=== PATIENT | female | born 1945 | race Caucasian/White ===

== ENCOUNTER → 2016-06-18 | Outpatient (CLI) | payer MEDICARE ==
--- NOTE | 2016-06-18 16:16 | REPMRS ---
Patient History The patient states she has not had a clinical breast exam in over a year. Patient is postmenopausal. Family history of prostate cancer in father at age 50 or over. Took unspecified hormones for 10 years. Digital Mammo Screening Bilat: June 18, 2016 - Exam #: [id number] Bilateral CC and MLO view(s) were taken. Technologist: Rebecca Valentine, Technologist Prior study comparison: March 04, 2015, digital bilateral screening mammo, performed at [facility]. June 06, 2013, digital bilateral screening mammo, performed at [facility]. 2012, digital bilateral screening mammo, performed at [facility]. FINDINGS: The breast tissue is heterogeneously dense. This may lower the sensitivity of mammography. There is a moderate amount of heterogeneously dense fibroglandular tissue which is fairly symmetric. There is no interval development of dominant mass, architectural distortion, or clustered microcalcification typical of malignancy. There has been no change in the appearance of the mammogram from the prior studies. ASSESSMENT: BI-RADS/ACR category 1 mammogram. Negative. Recommendation Routine screening mammogram of both breasts in 1 year (for women over age 40). This mammogram was interpreted with the aid of an FDA-approved computer-aided dectection system. Electronically Signed By: Edward Leyva MD 06/18/16 [id number]
== END ==
LOC: M RAD 15:28
PROVIDERS: ATTEND Family Medicine
DX: Z12.31 Encounter for screening mammogram for malignant neoplasm of breast (principal); R92.8 Other abnormal and inconclusive findings on diagnostic imaging of breast; Z79.890 Hormone replacement therapy

== ENCOUNTER → 2016-07-29 | Outpatient (REF) | payer MEDICARE ==
[2016-07-29 12:50] LABS: MEAN CORPUSCULAR HEMOGLOBIN 31.6 pg (27.0-33.0); MEAN CORPUSCULAR HGB CONC 33.7 g/dl (32.0-36.5); MEAN CORPUSCULAR VOLUME 93.9 fl (80.0-96.0); WHITE BLOOD COUNT 6.5 K/mm3 (4.0-10.0)
[2016-07-29 13:17] LABS: ALBUMIN/GLOBULIN RATIO 1.38 (1.00-1.93); ALKALINE PHOSPHATASE 115 U/L (45-117); ALT/SGPT 21 U/L (12-78); ANION GAP 8 MEQ/L (8-16); AST/SGOT 19 U/L (15-37); BILIRUBIN,TOTAL 0.2 MG/DL (0.2-1.0); BLOOD UREA NITROGEN 26 MG/DL (7-18); CALCIUM LEVEL 9.8 MG/DL (8.8-10.2); CARBON DIOXIDE LEVEL 31 MEQ/L (21-32); CHLORIDE LEVEL 102 MEQ/L (98-107); CHOLESTEROL LEVEL 260 MG/DL (<200); CREATININE FOR GFR 0.91 MG/DL (0.55-1.02); GLOMERULAR FILTRATION RATE > 60.0 (>39); GLUCOSE, FASTING 80 MG/DL (83-110); PHENOBARBITAL LEVEL 25.5 UG/ML (15.0-40.0); SODIUM LEVEL 141 MEQ/L (136-145); TOTAL PROTEIN 6.9 GM/DL (6.4-8.2); TRIGLYCERIDES LEVEL 87 MG/DL (<150)
== END ==
LOC: M LABDRAW1 11:52 → M SFHCLERA 11:52
PROVIDERS: ATTEND Family Medicine
DX: G40.909 Epilepsy, unspecified, not intractable, without status epilepticus (principal); N18.3 Chronic kidney disease, stage 3 (moderate); E03.9 Hypothyroidism, unspecified; I10 Essential (primary) hypertension; E55.9 Vitamin D deficiency, unspecified

== ENCOUNTER → 2016-11-15 | Outpatient (REF) | payer MEDICARE ==
[2016-11-15 13:08] LABS: MEAN CORPUSCULAR HEMOGLOBIN 31.7 pg (27.0-33.0); MEAN CORPUSCULAR HGB CONC 33.4 g/dl (32.0-36.5); MEAN CORPUSCULAR VOLUME 95.2 fl (80.0-96.0); RED CELL DISTRIBUTION WIDTH 12.6 % (11.5-14.5); WHITE BLOOD COUNT 5.8 K/mm3 (4.0-10.0)
[2016-11-15 14:11] LABS: ALBUMIN 3.7 GM/DL (3.2-5.2); ALBUMIN/GLOBULIN RATIO 1.09 (1.00-1.93); ALKALINE PHOSPHATASE 119 U/L (45-117); ALT/SGPT 24 U/L (12-78); ANION GAP 5 MEQ/L (8-16); AST/SGOT 17 U/L (15-37); BILIRUBIN,TOTAL 0.2 MG/DL (0.2-1.0); BLOOD UREA NITROGEN 30 MG/DL (7-18); CALCIUM LEVEL 9.8 MG/DL (8.8-10.2); CARBON DIOXIDE LEVEL 32 MEQ/L (21-32); CHLORIDE LEVEL 103 MEQ/L (98-107); CHOLESTEROL LEVEL 237 MG/DL (<200); CREATININE FOR GFR 0.89 MG/DL (0.55-1.02); GLOMERULAR FILTRATION RATE > 60.0 (>39); GLUCOSE, FASTING 84 MG/DL (83-110); POTASSIUM SERUM 4.1 MEQ/L (3.5-5.1); SODIUM LEVEL 140 MEQ/L (136-145); T UPTAKE 32 % (30-39); THYROXINE (T4) 10.7 UG/DL (4.5-12.0); TOTAL PROTEIN 7.1 GM/DL (6.4-8.2); TRIGLYCERIDES LEVEL 89 MG/DL (<150)
[2016-11-15 18:38] LABS: PHENOBARBITAL LEVEL 24.1 UG/ML (15.0-40.0)
== END ==
LOC: M LABDRAW1 12:34
PROVIDERS: ATTEND Family Medicine
DX: I10 Essential (primary) hypertension (principal); N18.3 Chronic kidney disease, stage 3 (moderate); G40.909 Epilepsy, unspecified, not intractable, without status epilepticus; E03.9 Hypothyroidism, unspecified; E55.9 Vitamin D deficiency, unspecified

== ENCOUNTER → 2016-11-19 | Outpatient (CLI) | payer MEDICARE ==
--- NOTE | 2016-11-19 09:32 | REP ---
Left forearm two views: There is no fracture or dislocation. There are no calcifications or foreign bodies. There is diffuse demineralization. Signed by Sandeep Kingsley MD 11/19/2016 09:23 A
--- NOTE | 2016-11-19 09:34 | REP ---
Clinical: Pain with recent Trauma. Technique: AP, lateral, bilateral oblique views left wrist. Findings: The carpal bones, surrounding osseous structures, and joint spaces demonstrate mild age-related changes. AP view demonstrates soft tissue swelling over the medial aspect adjacent to the distal ulna and very subtle nondisplaced ulnar styloid fracture cannot be excluded. No further acute fracture or dislocation is identified. Impression: Age-related changes. Cannot exclude nondisplaced ulnar styloid fracture and overlying soft tissue swelling. Signed by Ignacio Rodriguez MD 11/19/2016 09:26 A
== END ==
LOC: M LRY 08:33
PROVIDERS: ATTEND Family Medicine
DX: M85.832 Other specified disorders of bone density and structure, left forearm (principal)
CPT/HCPCS: 73090; 73110; G0463

== ENCOUNTER → 2017-02-28 | Outpatient (CLI) | payer MEDICARE ==
--- NOTE | 2017-03-01 09:33 | DEXA ---
AP SPINE L1 - L4 0.903 -2.4 -0.6 LT FEMUR TOTAL 0.723 -2.3 -0.7 RT FEMUR TOTAL 0.718 -2.3 -0.7 TOTAL BODY TOTAL OTHER DUAL FEMUR FRAX* ASSESSMENT Risk factors: 10 year probability of fracture Major osteoporotic fracture % Hip fracture % COMMENTS: There is low bone density of the spine. There is low bone density of the left hip. There is osteoporosis of the right hip. The density of the spine has increased 9.9% since the initial exam on 2012. The spine density has increased 7.6% since the most recent exam on 03/04/2015. The density of the left hip has increased 2.3% since the initial exam on 2012. The density of the left hip has increased 2.3% since the most recent exam on . The density of the right hip has increased 2.7% since the initial exam on 2012. The density of the right hip has increased 0.6% since the most recent exam on . FOLLOW-UP: Recommendation for the next bone density exam: 2 years. KEN
== END ==
LOC: M WHC 07:47
PROVIDERS: ATTEND Family Medicine
DX: M81.0 Age-related osteoporosis without current pathological fracture (principal)

== ENCOUNTER → 2017-04-12 | Outpatient (REF) | payer MEDICARE ==
[2017-04-12 19:27] LABS: MEAN CORPUSCULAR HEMOGLOBIN 31.5 pg (27.0-33.0); MEAN CORPUSCULAR HGB CONC 32.9 g/dl (32.0-36.5); MEAN CORPUSCULAR VOLUME 95.9 fl (80.0-96.0); PLATELET COUNT, AUTOMATED 223 10^3/uL (150-450); RED CELL DISTRIBUTION WIDTH 13.7 % (11.5-14.5); WHITE BLOOD COUNT 6.4 10^3/uL (4.0-10.0)
[2017-04-12 20:59] LABS: ALBUMIN 3.8 GM/DL (3.2-5.2); ALBUMIN/GLOBULIN RATIO 1.31 (1.00-1.93); BILIRUBIN,TOTAL 0.2 MG/DL (0.2-1.0); CALCIUM LEVEL 10.6 MG/DL (8.8-10.2); CREATININE FOR GFR 1.04 MG/DL (0.55-1.02); GLOMERULAR FILTRATION RATE 55.5 (>39); PHENOBARBITAL LEVEL 31.3 UG/ML (15.0-40.0); POTASSIUM SERUM 4.3 MEQ/L (3.5-5.1); TOTAL PROTEIN 6.7 GM/DL (6.4-8.2)
== END ==
LOC: M SFHCLERA 14:07
PROVIDERS: ATTEND Family Medicine
DX: G40.909 Epilepsy, unspecified, not intractable, without status epilepticus (principal); E03.9 Hypothyroidism, unspecified; Z23 Encounter for immunization
CPT/HCPCS: 80053; 80184; 80185; 84443; 85027; 90471; 90732; G0463

== ENCOUNTER → 2017-04-26 | Outpatient (CLI) | payer MEDICARE ==
[2017-04-26 09:13] LABS: CALCIUM LEVEL 9.7 MG/DL (8.8-10.2); CREATININE FOR GFR 1.19 MG/DL (0.55-1.02); FREE T4 1.1 NG/DL (0.76-1.46); GLOMERULAR FILTRATION RATE 47.5 (>39); POTASSIUM SERUM 3.8 MEQ/L (3.5-5.1)
== END ==
LOC: M LAB 08:13
PROVIDERS: ATTEND Family Medicine
DX: R94.6 Abnormal results of thyroid function studies (principal)

== ENCOUNTER → 2017-09-24 | Outpatient (CLI) | payer MEDICARE ==
[2017-09-24 18:33] LABS: PHENOBARBITAL LEVEL 32.6 UG/ML (15.0-40.0)
[2017-09-24 18:33] LABS: PHENYTOIN (DILANTIN) 21.2 UG/ML (10.0-20.0)
== END ==
LOC: M LRY 10:32
DX: G40.909 Epilepsy, unspecified, not intractable, without status epilepticus (principal)
CPT/HCPCS: 80185

== ENCOUNTER → 2017-11-16 | Outpatient (CLI) | payer MEDICARE | LOC: M SMT 12:02 | DX: R40.0 Somnolence (principal) | CPT/HCPCS: 71046 ==

== ENCOUNTER → 2017-12-04 | Outpatient (CLI) | payer MEDICARE | LOC: M SLEEP 19:52 | DX: G47.33 Obstructive sleep apnea (adult) (pediatric) (principal) | CPT/HCPCS: 95810 ==

== ENCOUNTER → 2018-01-08 | Outpatient (CLI) | payer MEDICARE | LOC: M SLEEP 20:00 | DX: G47.33 Obstructive sleep apnea (adult) (pediatric) (principal) | CPT/HCPCS: 95811 ==

== ENCOUNTER → 2018-01-10 | Outpatient (REF) | payer MEDICARE ==
[2018-01-10 19:55] LABS: BASO % 0.6 % (0.0-1.0); EOS # 0.5 10^3/uL (0.0-0.50); EOS % 7.4 % (0.0-3.0); HEMATOCRIT 36.2 % (36.0-47.0); HEMOGLOBIN 11.7 g/dl (12.0-15.5); IMMATURE GRANULOCYTE % 0.3 % (0-3.0); LYMPH # 1.5 10^3/uL (1.5-4.5); LYMPH % 24.1 % (24.0-44.0); MEAN CORPUSCULAR HEMOGLOBIN 30.9 pg (27.0-33.0); MEAN CORPUSCULAR HGB CONC 32.3 g/dl (32.0-36.5); MEAN CORPUSCULAR VOLUME 95.5 fl (80.0-96.0); MONO # 0.6 10^3/uL (0.0-0.8); MONO % 9.6 % (0.0-5.0); NEUTROPHILS # 3.6 10^3/uL (1.8-7.7); PLATELET COUNT, AUTOMATED 204 10^3/uL (150-450); RED BLOOD COUNT 3.79 10^6/uL (4.00-5.40); RED CELL DISTRIBUTION WIDTH 12.9 % (11.5-14.5); WHITE BLOOD COUNT 6.2 10^3/uL (4.0-10.0)
[2018-01-10 20:09] LABS: ANION GAP 6 MEQ/L (8-16); BLOOD UREA NITROGEN 40 MG/DL (7-18); CALCIUM LEVEL 9.8 MG/DL (8.8-10.2); CARBON DIOXIDE LEVEL 33 MEQ/L (21-32); CHLORIDE LEVEL 103 MEQ/L (98-107); CREATININE FOR GFR 1.14 MG/DL (0.55-1.30); GLOMERULAR FILTRATION RATE 49.7 (>39); GLUCOSE, FASTING 85 MG/DL (70-100); PHENOBARBITAL LEVEL 32.4 UG/ML (15.0-40.0); PHENYTOIN (DILANTIN) 19.3 UG/ML (10.0-20.0); SODIUM LEVEL 142 MEQ/L (136-145)
== END ==
LOC: M SFHCLERA 17:08
DX: N18.3 Chronic kidney disease, stage 3 (moderate) (principal); G40.909 Epilepsy, unspecified, not intractable, without status epilepticus; E03.9 Hypothyroidism, unspecified
CPT/HCPCS: 80185

== ENCOUNTER 2018-02-17 06:26 | Day surgery (SDC) | payer MEDICARE ==
[2018-02-17] MEDS: NS 1,000 ML IV (06:00)
[2018-02-17] MEDS ORDERED: LIDOCAINE 2% INJ 100 MG/5 ML SDV (FOR ANES.) As Ordered (07:36)
[2018-02-17] MEDS ORDERED: PROPOFOL 200 MG/20 ML VIAL As Ordered (07:36)
== END 2018-02-17 08:53 | disposition home or self-care (01) ==
LOC: M OPP 06:26
DX: K64.8 Other hemorrhoids (principal); K57.30 Diverticulosis of large intestine without perforation or abscess without bleeding; K59.00 Constipation, unspecified; K62.3 Rectal prolapse; I10 Essential (primary) hypertension; E03.9 Hypothyroidism, unspecified; M54.9 Dorsalgia, unspecified; M81.0 Age-related osteoporosis without current pathological fracture; J44.9 Chronic obstructive pulmonary disease, unspecified; G47.30 Sleep apnea, unspecified; Z79.82 Long term (current) use of aspirin; Z79.899 Other long term (current) drug therapy; Z86.011 Personal history of benign neoplasm of the brain; Z90.710 Acquired absence of both cervix and uterus; Z86.69 Personal history of other diseases of the nervous system and sense organs; Z78.0 Asymptomatic menopausal state; Z88.5 Allergy status to narcotic agent; L23.7 Allergic contact dermatitis due to plants, except food; Z82.0 Family history of epilepsy and other diseases of the nervous system; Z83.3 Family history of diabetes mellitus; Z85.850 Personal history of malignant neoplasm of thyroid
CPT/HCPCS: 45378

== ENCOUNTER → 2018-04-22 | Outpatient (CLI) | payer MEDICARE ==
[2018-04-22 19:01] LABS: BASO % 0.4 % (0.0-1.0); EOS # 0.3 10^3/uL (0.0-0.50); EOS % 3.9 % (0.0-3.0); HEMATOCRIT 36.8 % (36.0-47.0); HEMOGLOBIN 11.6 g/dl (12.0-15.5); IMMATURE GRANULOCYTE % 0.3 % (0-3.0); LYMPH # 1.1 10^3/uL (1.5-4.5); LYMPH % 13.2 % (24.0-44.0); MEAN CORPUSCULAR HEMOGLOBIN 30.4 pg (27.0-33.0); MEAN CORPUSCULAR HGB CONC 31.5 g/dl (32.0-36.5); MEAN CORPUSCULAR VOLUME 96.6 fl (80.0-96.0); MONO # 0.7 10^3/uL (0.0-0.8); MONO % 8.1 % (0.0-5.0); NEUTROPHILS # 5.9 10^3/uL (1.8-7.7); NEUTROPHILS % 74.1 % (36.0-66.0); PLATELET COUNT, AUTOMATED 268 10^3/uL (150-450); RED BLOOD COUNT 3.81 10^6/uL (4.00-5.40); RED CELL DISTRIBUTION WIDTH 12.6 % (11.5-14.5)
[2018-04-22 19:13] LABS: ALBUMIN 3.5 GM/DL (3.2-5.2); ALKALINE PHOSPHATASE 110 U/L (45-117); ALT/SGPT 16 U/L (12-78); ANION GAP 7 MEQ/L (8-16); AST/SGOT 13 U/L (7-37); BILIRUBIN,TOTAL 0.2 MG/DL (0.2-1.0); BLOOD UREA NITROGEN 30 MG/DL (7-18); CALCIUM LEVEL 9.7 MG/DL (8.8-10.2); CARBON DIOXIDE LEVEL 32 MEQ/L (21-32); CHLORIDE LEVEL 102 MEQ/L (98-107); CREATININE FOR GFR 1.02 MG/DL (0.55-1.30); GLOMERULAR FILTRATION RATE 56.6 (>39); GLUCOSE, FASTING 79 MG/DL (70-100); PHENOBARBITAL LEVEL 28.4 UG/ML (15.0-40.0); PHENYTOIN (DILANTIN) 14.6 UG/ML (10.0-20.0); POTASSIUM SERUM 3.8 MEQ/L (3.5-5.1); SODIUM LEVEL 141 MEQ/L (136-145)
== END ==
LOC: M LRY 10:20
DX: R56.9 Unspecified convulsions (principal)
CPT/HCPCS: 80185

== ENCOUNTER 2018-07-06 13:44 | Emergency (ER) | payer MEDICARE ==
[~2018-07-06] VITALS: Ht 157.5 cm; Wt 62.3 kg
[~2018-07-06 13:44] MED LIST: ALBU83IN INH; ALEN70TA57 PO; ASPI1TAB PO; CALC600T31 PO; FLON1SPR; FURO20TA2 PO; LEVO175T2 PO; PHEN16.2 PO; PHEN50CH PO; PROAAER10 INH; TIMO0.5S39 OU; TRIA37.53 PO
[2018-07-06] MEDS ORDERED: SENN8.6T17 PO (14:02)
[2018-07-06] MEDS ORDERED: PHEN200C (14:02)
[2018-07-06] MEDS ORDERED: ACETAMINOPHEN 325 MG TAB PO ONE (14:30)
[2018-07-06] MEDS ORDERED: IBUPROFEN 400 MG TAB PO ONE (14:30)
--- NOTE | 2018-07-06 15:26 | REP ---
PELVIS AND LEFT HIP: AP view of the pelvis with AP and frog leg views of the left hip are performed. There is no evidence of acute fracture, dislocation or intrinsic bone disease. There are minor degenerative changes of the hip joints and sacroiliac joints bilaterally. IMPRESSION: No fracture or dislocation. Electronically Signed by Sandeep Ramey MD 07/07/2018 03:52 P
--- NOTE | 2018-07-06 15:27 | REP ---
LUMBOSACRAL SPINE: Five views of lumbosacral spine are performed. I see no evidence of compression fracture or malalignment. There is normal lumbar lordosis. There is mild diffuse spurring. Disc spaces are relatively well preserved. There is sclerosis at the facets of L4-5 and L5-S1. Posterior elements are intact. IMPRESSION: Degenerative changes without fracture or dislocation. Electronically Signed by Sandeep Ramey MD 07/07/2018 03:53 P
[2018-07-06] MEDS ORDERED: LIDO5DIS41 TOP (15:59)
[2018-07-06] MEDS ORDERED: LIDOCAINE 5% (LIDODERM) PATCH TD ONE (16:00)
--- NOTE | 2018-07-06 16:08 | REP ---
CT LUMBAR SPINE WITHOUT CONTRAST: HISTORY: Trauma. There is no disc bulge or herniation at the L1-2 and L2-3 level. The nerves exit the neural foramina without compression. A diffuse disc bulge is present at the L3-4 level. There is minimal compression of the thecal sac. The L3 nerve exit the neural foramina without compression. A diffuse disc bulge is present at the L4-5 level. There is minimal compression of the thecal sac. There is hypertrophy of the ligamenta flava and posterior articulating facets. The L4 nerves exit the neural foramina without compression. A diffuse disc bulge is present at the L5-S1 level. This abuts the thecal sac and S1 nerves. There is hypertrophy of the posterior articulating facets. The L5 nerves exit the neural foramina without compression. The L2-3 through L4-5 intervertebral discs are decreased in height consistent with disc degeneration. There is no fracture or subluxation. IMPRESSION:1. Diffuse disc bulges at the L3-4 and L4-5 levels with minimal thecal sac compression. 2. Diffuse disc bulge at the L5-S1 level. This abuts the thecal sac and S1 nerves. Electronically Signed by Jonatan Harmon MD 07/06/2018 04:10 P
[2018-07-06] MEDS ORDERED: NEUR100C PO (16:39)
[2018-07-06] MEDS ORDERED: CYCL5TAB PO (16:39)
[2018-07-06] MEDS ORDERED: CYCLOBENZAPRINE 5MG TABLET PO ONE (16:45)
[2018-07-06] MEDS ORDERED: GABAPENTIN 100 MG CAP PO ONE (16:45)
[2018-07-06 17:23] VITALS: BP 157/71
[2018-07-07] MEDS ORDERED: **NOTE PATIENT COMMENT** MISC XX SCH (04:00)
--- NOTE | 2018-07-07 12:02 | ED PDOC ---
Post-Departure Follow-Up dr monroy faxed formal report of ct ls spine for fu Ap Miranda MD Jul 07, 2018 12:02
== END 2018-07-06 17:20 | disposition home or self-care (01) ==
LOC: M ED 13:44
DX: M51.26 Other intervertebral disc displacement, lumbar region (principal); M51.27 Other intervertebral disc displacement, lumbosacral region; Z91.81 History of falling; I73.9 Peripheral vascular disease, unspecified; N18.9 Chronic kidney disease, unspecified; R56.9 Unspecified convulsions; Z85.841 Personal history of malignant neoplasm of brain; Z88.5 Allergy status to narcotic agent; Z79.899 Other long term (current) drug therapy; Z79.82 Long term (current) use of aspirin

== ENCOUNTER → 2018-07-14 | Outpatient (REF) | payer MEDICARE ==
[~2018-07-14] MED LIST changes: +CYCL5TAB PO; +LIDO5DIS41 TOP; +NEUR100C PO; +PHEN200C; +SENN8.6T17 PO
== END ==
LOC: M SFHCLERA 12:05
PROVIDERS: ATTEND Nurse Practitioner Family
DX: R30.0 Dysuria (principal)

== ENCOUNTER → 2018-08-07 | Outpatient (CLI) | payer MEDICARE ==
--- NOTE | 2018-08-07 15:17 | REP ---
THREE-PHASE BONE SCAN OF THE KNEES AND PELVIS. HISTORY: Osteoarthritis left knee. Evaluate hip, back, pelvic, and knee pain. Patient reports a fall several months ago and multiple falls since then. TECHNIQUE: 21.8 mCi of technetium 99m MDP is injected, and standard three-phase imaging is acquired. SCINTIGRAPHIC FINDINGS: The anterior and posterior flow images of the knee area are normal. Blood pool images of the knees show no asymmetric area of hyperemia. Blood pool images of the hips and pelvis are unremarkable as well. Delayed scan images of the knees are obtained. The hip and pelvic images show normal symmetric uptake. There is no evidence to suggest recent fracture or significant arthritic uptake in or about the hips or pelvis. There is mild degenerative disc uptake at L4-5 on the left. Images of the knees demonstrate mildly increased uptake in the posterior and lateral cortex of each proximal tibia which may reflect stress phenomenon or early arthropathy. There is no evidence to suggest recent fracture or established stress fracture. IMPRESSION: Subtle pattern of increased uptake in the posterior and lateral aspect of each tibia in the metaphyseal region. Question stress response. No evidence of occult fracture or established stress fracture seen. Otherwise negative. Electronically Signed by Yobani Leyva MD 08/07/2018 04:54 P
== END ==
LOC: M RAD 09:58
PROVIDERS: ATTEND Orthopaedic Surgery
DX: M17.12 Unilateral primary osteoarthritis, left knee (principal)
CPT/HCPCS: 78315; A9503

== ENCOUNTER → 2018-08-31 | Outpatient (REF) | payer MEDICARE ==
[~2018-08-31] MED LIST changes: -ALEN70TA57 PO; +ALEN70TA74 PO; -ASPI1TAB PO; +ASPI81TA26 PO
[2018-08-31 20:51] LABS: FREE T4 1.14 NG/DL (0.76-1.46); THYROID STIMULATING HORMONE 1.2 uIU/ML (0.358-3.740)
[2018-08-31 20:53] LABS: BASO % 0.5 % (0.0-1.0); EOS # 0.3 10^3/uL (0.0-0.50); EOS % 5.6 % (0.0-3.0); HEMATOCRIT 40.5 % (36.0-47.0); HEMOGLOBIN 13.4 g/dl (12.0-15.5); LYMPH # 1.6 10^3/uL (1.5-4.5); LYMPH % 27.5 % (24.0-44.0); MEAN CORPUSCULAR HEMOGLOBIN 31.7 pg (27.0-33.0); MEAN CORPUSCULAR HGB CONC 33.1 g/dl (32.0-36.5); MEAN CORPUSCULAR VOLUME 95.7 fl (80.0-96.0); MONO # 0.6 10^3/uL (0.0-0.8); MONO % 10.6 % (0.0-5.0); NEUTROPHILS # 3.3 10^3/uL (1.8-7.7); NEUTROPHILS % 55.6 % (36.0-66.0); PLATELET COUNT, AUTOMATED 257 10^3/uL (150-450); RED BLOOD COUNT 4.23 10^6/uL (4.00-5.40); WHITE BLOOD COUNT 5.9 10^3/uL (4.0-10.0)
== END ==
LOC: M SFHCLERA 16:32
PROVIDERS: ATTEND Nurse Practitioner Family
DX: N30.00 Acute cystitis without hematuria (principal); E03.9 Hypothyroidism, unspecified
CPT/HCPCS: 81002; 84439; 84443; 85025; 87088; G0463

== ENCOUNTER 2018-10-12 07:02 | Inpatient (IN) | payer MEDICARE ==
[~2018-10-12] VITALS: Ht 157.5 cm; Wt 58.9 kg
[~2018-10-12 07:02] MED LIST changes: -FLON1SPR; +FLON1SPR NARES
[2018-10-12 07:54] LABS: VENOUS BASE EXCESS 10.5 (-2.0-2.0); VENOUS PARTIAL PRESSURE CO2 45.6 mmHg (38.0-50.0); VENOUS PARTIAL PRESSURE O2 37.3 mmHg (30.0-50.0); VENOUS PH 7.503 UNITS (7.330-7.430); VENOUS STANDARD HCO3 33.6 MEQ/L; VENOUS TOTAL CO2 36.4 MEQ/L (24.0-28.0)
[2018-10-12 08:00] LABS: BASO % 0.4 % (0.0-1.0); EOS # 0.2 10^3/uL (0.0-0.50); HEMATOCRIT 40.9 % (36.0-47.0); LYMPH # 1.2 10^3/uL (1.5-4.5); LYMPH % 16.6 % (24.0-44.0); MEAN CORPUSCULAR HEMOGLOBIN 32.4 pg (27.0-33.0); MEAN CORPUSCULAR HGB CONC 34.2 g/dl (32.0-36.5); MEAN CORPUSCULAR VOLUME 94.7 fl (80.0-96.0); MONO # 0.7 10^3/uL (0.0-0.8); MONO % 9.3 % (0.0-5.0); NEUTROPHILS # 5.2 10^3/uL (1.8-7.7); NEUTROPHILS % 70.6 % (36.0-66.0); PLATELET COUNT, AUTOMATED 240 10^3/uL (150-450); RED BLOOD COUNT 4.32 10^6/uL (4.00-5.40); WHITE BLOOD COUNT 7.3 10^3/uL (4.0-10.0)
--- NOTE | 2018-10-12 08:29 | REP ---
CT Head without contrast HISTORY: Altered mental status COMPARISON: 02/06/2015 The patient is has post left temporal parietal craniotomy. Metal clips are present in the left parietal lobe. An area of decreased attenuation is present in the left temporal parietal lobes. There is dilatation of the overlying cortical sulci and body of the left lateral ventricle. This represents encephalomalacia. There is no intraparenchymal hemorrhage, acute infarct, mass or midline shift. The ventricular system and cortical sulci as well as subarachnoid space in the posterior fossa are dilated consistent with mild volume loss. There is no extra cerebral collection. There is no fracture. The visualized sinuses are clear. IMPRESSION: 1. Left temporal parietal lobe encephalomalacia. 2. Mild volume loss. Electronically Signed by Jonatan Harmon MD 10/12/2018 08:20 A
--- NOTE | 2018-10-12 08:41 | REP ---
Clinical: Altered mental status. Comparison: 11/16/2017. Findings: Mediastinum and cardiac silhouette are within normal limits and stable. Lung shelby demonstrate chronic changes without focal consolidation, effusion, or pneumothorax. Skeletal structures demonstrate osteopenia and age-related degenerative changes. Impression: Chronic stable changes. No focal consolidation or effusion appreciated. Electronically Signed by Ignacio Rodriguez MD 10/12/2018 08:33 A
[2018-10-12 08:55] LABS: ALT/SGPT 20 U/L (12-78); BILIRUBIN,DIRECT < 0.1 MG/DL (0.0-0.2); BILIRUBIN,TOTAL 0.4 MG/DL (0.2-1.0); BLOOD UREA NITROGEN 39 MG/DL (7-18); CALCIUM LEVEL 14.3 MG/DL (8.8-10.2); CARBON DIOXIDE LEVEL 34 MEQ/L (21-32); CHLORIDE LEVEL 96 MEQ/L (98-107); CPK CREATINE PHOSPHOKINASE 38 U/L (26-192); CREATININE FOR GFR 1.42 MG/DL (0.55-1.30); GLOMERULAR FILTRATION RATE 38.5 (>39); GLUCOSE, FASTING 107 MG/DL (70-100); MB/CK RELATIVE INDEX 5.79 (< OR =4); PHENOBARBITAL LEVEL 46.3 UG/ML (15.0-40.0); PHENYTOIN (DILANTIN) 20.6 UG/ML (10.0-20.0); POTASSIUM SERUM 3.1 MEQ/L (3.5-5.1); SODIUM LEVEL 138 MEQ/L (136-145); TOTAL PROTEIN 7.6 GM/DL (6.4-8.2); TROPONIN I < 0.02 NG/ML (< 0.10)
[2018-10-12] MEDS: HEPARIN SOD (PORCINE) 5000 UNITS/ML VIAL SC SCH ×2 (09:00→20:32)
[2018-10-12] MEDS ORDERED: PENI500T PO (09:07)
[2018-10-12] MEDS ORDERED: PHEN100C PO (09:07)
[2018-10-12] MEDS ORDERED: IPRA0.00 NEB (09:07)
[2018-10-12] MEDS ORDERED: FISH1CAP23 PO (09:07)
[2018-10-12] MEDS ORDERED: ESTR62CR PV (09:07)
[2018-10-12] MEDS ORDERED: CALC600T5 PO (09:08)
[2018-10-12] MEDS ORDERED: POTASSIUM CHLORIDE 10 MEQ SR TABLET PO ONE (09:30)
[2018-10-12] MEDS ORDERED: IPRATROPIUM 0.5MG/ALBUTEROL 2.5MG INH SOL UD 3ML (DUONEB)(J7620) NEB PRN (09:30)
[2018-10-12] MEDS ORDERED: FLUTICASONE PROP 0.05% NASAL SPRAY 16 GM (FLONASE) NARES PRN (09:30)
[2018-10-12] MEDS ORDERED: ALBUTEROL 90 MCG/ACT 8GM HFA INHALER INH PRN (09:30)
[2018-10-12] MEDS: NS 1,000 ML IV SCH ×4 (09:32→23:07)
[2018-10-12 09:38] LABS: IONIZED CALCIUM 6.6 MG/DL (4.5-5.3)
[2018-10-12] MEDS ORDERED: KCL 10MEQ/100ML SWI (KRUN) 10 MEQ in APPROPRIATE DILUENT 1 EA IV ONE (10:00)
[2018-10-12] MEDS ORDERED: ACETAMINOPHEN TAB 650MG DOSE (2X325MG) PO PRN (10:00)
[2018-10-12 10:11] LABS: PTH INTACT 23.3 PG/ML (18.5-88.0)
[2018-10-12] MEDS ORDERED: FUROSEMIDE 20 MG/2 ML VIAL (J1940) IV ONE (11:45)
[2018-10-12 12:05] VITALS: BP 138/81
[2018-10-12 12:20] LABS: TOTAL 25(OH) VITAMIN D 47.1 NG/ML (30.0-100.0)
--- NOTE | 2018-10-12 12:50 | HPE ---
DATE OF ADMISSION: 10/12/2018 PRIMARY CARE PROVIDER: Dr. Rodriguez ATTENDING PHYSICIAN: Dr. Latricia Garcia CHIEF COMPLAINT: Generalized weakness and fall at home. HISTORY OF PRESENT ILLNESS (HPI): The patient is a 73-year-old white female with several chronic medical conditions listed below, came to the hospital for evaluation of above complains. History is provided by herself as well as her daughter, who is with her in the emergency room (ER). Per the patient, she was doing fine until a few weeks ago. Somehow, she became very weak generally, which was getting worse gradually. Also, her appetite is poor, and she is constipated. Two days ago, she went to see her dentist who pulled two teeth. Yesterday, she was very weak and fell at home, so the family brought her to the hospital for further evaluation. In the ER, her initial workup indicated her calcium level is up to 14. She was given intravenous (IV) hydration in the ER. Meanwhile, medicine was called for admission. REVIEW OF SYSTEMS: Denies fever. No chills. No headache. No blurred vision. No shortness of breath. No chest pain. No abdomen pain. No nausea. No vomiting. No diarrhea, but constipation. No tingling, numbness, or weakness in the arms, lower extremities, but general weakness. All other systems reviewed, but negative. PAST MEDICAL HISTORY: 1. Obstructive sleep apnea on continuous positive airway pressure (CPAP) at night. 2. Questionable asthma. 3. Hypertension. 4. Hypothyroidism. 5. Chronic kidney disease (CKD) stage III. 6. Prolapsed bladder. PAST SURGICAL HISTORY: Hysterectomy. Benign brain tumor was removed many years ago. Breasts, benign cysts were removed many years ago. She had a colonoscopy done last year, which was normal. Also, she is legally blind. ALLERGIES: No known drug allergies. FAMILY HISTORY: Both parents many years ago. No family history of diabetes or any malignancy. SOCIAL HISTORY: She denies tobacco use, alcohol abuse, illicit drug abuse. She is living with her daughter at home. She is FULL CODE. MEDICATIONS: - Lasix 20 mg by mouth daily - calcium carbonate 600 mg by mouth three times a day - albuterol as needed - aspirin 81 mg by mouth daily - Synthroid 175 mcg by mouth daily - phenobarbital 30 mg by mouth twice a day - phenytoin 50 mg by mouth in the evening and 100 mg by mouth three times a day PHYSICAL EXAMINATION: VITAL SIGNS: Temperature 97.8, heart rate 68, respirations 16, blood pressure 140/74, oxygen saturation 99% on room air. GENERAL: She is awake, alert, oriented times three. She is not in acute distress. HEENT: Atraumatic. Pupils equal, round, and reactive to light. Extraocular muscles intact. No jaundice. Ear, nose, throat, normal. Mouth, mucous not dry. NECK: No jugular venous distention (JVD). No bruits. LUNGS: Clear. No wheeze. No crackles. HEART: S1, S2. Regular. No murmur. ABDOMEN: Soft. Bowel sounds positive. Nontender. LOWER EXTREMITY: No edema in bilateral lower extremities. NEUROLOGIC: Nonfocal. SKIN: No rash. PSYCHOLOGIC: No acute psychosis. DIAGNOSTIC AND LAB STUDIES: Include the following: CBC and differential showed WBC 7.3, hemoglobin and hematocrit 14/41, platelets 240. Sodium is 138, potassium is 3.1, bicarbonate 34, BUN 39, creatinine 1.4, glucose 107, calcium was 14.3, and ionized calcium was 6.6. Her PTH is at 23. IMPRESSION: 1. General weakness due to hypercalcemia. 2. Hypertension. 3. Hypothyroidism. 4. Chronic kidney disease (CKD) stage III. 5. Obstructive sleep apnea. 6. Hypokalemia PLAN: Patient will be admitted to the progressive care unit (PCU) for close monitoring. Her calcium level is up to 14; The underlying etiology is not clearing and workups are in progress; we will treat her with IV hydration and Lasix diuresis. will consult senior dot net developer.Will continue her most regular home medications except holding calcium supplement. Her potassium is low at 3.1. Will supplement. Will give heparin for deep venous thrombosis (DVT) prophylaxis. [facility]
[2018-10-12 16:00] VITALS: BP 136/65
--- NOTE | 2018-10-12 17:47 | REP ---
Clinical: Stage III chronic medical renal disease. Technique: Real time barajas scale ultrasound examination using curved array transducer. Findings: The bilateral kidneys are diffusely heterogeneous and echogenic with a multiple bilateral cysts, and no evidence for hydronephrosis, obvious nephrolithiasis, or renal mass lesion. Right kidney measures 10.1 x 6.4 x 5.6 cm and includes multiple simple cysts measuring between 1.5 and 2.2 cm maximal diameter. Left kidney measures 10.6 x 4.2 x 4.8 cm and includes multiple small simple cysts up to 7 mm along with complex lower pole cyst measuring 1.4 cm maximal diameter. Bladder is normal in appearance without wall thickening or obvious abnormality. Impression: Chronic medical renal disease with few bilateral renal cysts. Electronically Signed by Ignacio Rodriguez MD 10/12/2018 05:38 P
[2018-10-12] MEDS: PHENYTOIN ER 100 MG CAP PO SCH ×2 (17:53→20:31)
[2018-10-12 20:00] VITALS: BP 121/58
[2018-10-12] MEDS: PHENobarbital 30 MG TAB PO SCH (20:31)
[2018-10-12] MEDS: SENNA 8.6 MG TAB (SENOKOT) PO SCH (20:31)
[2018-10-12] MEDS: TIMOLOL MALEATE 0.5% OPHTH SOLN 5 ML OU SCH (20:32)
[2018-10-12] MEDS: ASPIRIN 81 MG ENTERIC TAB PO SCH (20:32)
--- NOTE | 2018-10-12 20:41 | ECGEPIP ---
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
[2018-10-12 22:31] LABS: ALBUMIN 2.7 GM/DL (3.2-5.2); BILIRUBIN,TOTAL 0.3 MG/DL (0.2-1.0); CALCIUM LEVEL 10.3 MG/DL (8.8-10.2); CREATININE FOR GFR 1.05 MG/DL (0.55-1.30); GLOMERULAR FILTRATION RATE 54.5 (>39)
[2018-10-12] MEDS: KCL 10MEQ/100ML SWI (KRUN) 10 MEQ in APPROPRIATE DILUENT 1 EA IV SCH (23:06)
[2018-10-12 23:59] VITALS: BP 119/57
[2018-10-13] MEDS: KCL 10MEQ/100ML SWI (KRUN) 10 MEQ in APPROPRIATE DILUENT 1 EA IV SCH (00:33)
[2018-10-13 04:00] VITALS: BP 101/53
[2018-10-13 05:39] LABS: IONIZED CALCIUM 5.6 MG/DL (4.5-5.3)
[2018-10-13 05:47] LABS: HEMATOCRIT 33.1 % (36.0-47.0); MEAN CORPUSCULAR HEMOGLOBIN 32.2 pg (27.0-33.0); MEAN CORPUSCULAR HGB CONC 33.5 g/dl (32.0-36.5); MEAN CORPUSCULAR VOLUME 95.9 fl (80.0-96.0); PLATELET COUNT, AUTOMATED 191 10^3/uL (150-450); RED BLOOD COUNT 3.45 10^6/uL (4.00-5.40); WHITE BLOOD COUNT 4.8 10^3/uL (4.0-10.0)
[2018-10-13 05:55] LABS: HEMOGLOBIN 11.1 g/dl (12.0-15.5)
[2018-10-13] MEDS: LEVOTHYROXINE 150MCG TABLET (0.15MG) PO SCH (06:00)
[2018-10-13 06:15] LABS: CALCIUM LEVEL 10.7 MG/DL (8.8-10.2); CREATININE FOR GFR 1.02 MG/DL (0.55-1.30); GLOMERULAR FILTRATION RATE 56.4 (>39); POTASSIUM SERUM 3.5 MEQ/L (3.5-5.1)
[2018-10-13 08:00] VITALS: BP 126/73
[2018-10-13] MEDS ORDERED: PHENYTOIN 50 MG CHEW TABLET PO SCH (09:00)
[2018-10-13] MEDS ORDERED: DYAZIDE 37.5/25 CAP (TRIAM/HCTZ) PO SCH (09:00)
[2018-10-13] MEDS: PHENYTOIN ER 100 MG CAP PO SCH ×3 (09:48→21:59)
[2018-10-13] MEDS: PHENobarbital 30 MG TAB PO SCH ×2 (09:49→21:59)
[2018-10-13] MEDS: TIMOLOL MALEATE 0.5% OPHTH SOLN 5 ML OU SCH ×2 (09:49→21:39)
[2018-10-13] MEDS: HEPARIN SOD (PORCINE) 5000 UNITS/ML VIAL SC SCH ×2 (09:49→21:39)
--- NOTE | 2018-10-13 12:19 | IPNPDOC ---
Date Seen The patient was seen on 10/13/18. Progress Note Subjective 73 Y female, history of HTN, LEONIDES, history of brain tumor removed many years ago presents with general weakness and fall at home admitted for hypercalcemia feels much better no events overnight Review of systems: no fever no chills no chest pain no abdominal pain no diarrhea PHYSICAL EXAMINATION: GENERAL: She is awake, alert, oriented times three. She is not in acute distress. her daughter at bedside HEENT: Atraumatic. Pupils equal, round, and reactive to light. Extraocular muscles intact. No jaundice. Ear, nose, throat, normal. Mouth, mucous not dry. NECK: No jugular venous distention (JVD). No bruits. LUNGS: Clear. No wheeze. No crackles. HEART: S1, S2. Regular. No murmur. ABDOMEN: Soft. Bowel sounds positive. Nontender. LOWER EXTREMITY: No edema in bilateral lower extremities. NEUROLOGIC: Nonfocal. SKIN: No rash. PSYCHOLOGIC: No acute psychosis. Assessment and Plans 1. Hypercalcemia, etiology not clear, intact PTH normal appreciated soft crab shedder input Ca level coming down from 14 to 10 this AM after IVF and lasix will continue gentle IV hydration and Lasix 2. Hypertension, BP stable 3. Hypothyroidism on synthyroid 4. Hypokalemia, resolved 5. History of brain tumor, will continue Dilantin/Fenobartetol 6. Dispo: PT pending and likely discharge tomorrow A-FIB/CHADSVASC A-FIB History Current/History of A-Fib/PAF?: No Current PO Anticoag Therapy: No VS, I&O, 24H, Fishbone Vital Signs/I&O Vital Signs Date Time Temp Pulse Resp B/P (MAP) Pulse Ox O2 Delivery O2 Flow Rate FiO2 10/13/18 08:00 97.6 70 18 126/73 (90) 99 10/12/18 11:32 Room Air I&O- Last 24 Hours up to 6 AM 10/13/18 06:00 Intake Total 3480 ml Output Total 1800 ml Balance 1680 ml Laboratory Data 24H LABS Laboratory Tests 2 10/12/18 14:01: Whole Blood Ionized Calcium 6.2H 10/12/18 21:56: Anion Gap 5L, Glomerular Filtration Rate 54.5, Blood Urea Nitrogen 32H, Creatinine 1.05, Sodium Level 141, Potassium Level 3.0L, Chloride Level 106, Carbon Dioxide Level 30, Calcium Level 10.3#H, Aspartate Amino Transf (AST/SGOT) 15, Alanine Aminotransferase (ALT/SGPT) 15, Alkaline Phosphatase 87, Total Bilirubin 0.3, Total Protein 6.0#L, Albumin 2.7#L, Albumin/Globulin Ratio 0.82L 10/13/18 04:58: Whole Blood Ionized Calcium 5.6H, Anion Gap 6L, Glomerular Filtration Rate 56.4, Blood Urea Nitrogen 30H, Creatinine 1.02, Sodium Level 141, Potassium Level 3.5, Chloride Level 106, Carbon Dioxide Level 29, Calcium Level 10.7H, Nucleated Red Blood Cells % (auto) 0.0 CBC/BMP Laboratory Tests 10/12/18 21:56 Calcium Level 10.3 #H, Aspartate Amino Transf (AST/SGOT) 15, Alanine Aminotransferase (ALT/SGPT) 15, Alkaline Phosphatase 87, Total Bilirubin 0.3, Total Protein 6.0 #L, Albumin 2.7 #L 10/13/18 04:58 Calcium Level 10.7 H, Red Blood Count 3.45 L, Mean Corpuscular Volume 95.9, Mean Corpuscular Hemoglobin 32.2, Mean Corpuscular Hemoglobin Concent 33.5, Red Cell Distribution Width 13.1 Microbiology Microbiology 10/12/18 Urine Culture - Final, Complete ULI MOSER MD October 13, 2018 12:19
[2018-10-13] MEDS ORDERED: FUROSEMIDE 100 MG/10 ML VIAL (J1940) IV ONE (13:00)
[2018-10-13 13:10] VITALS: BP 115/64
[2018-10-13] MEDS ORDERED: FUROSEMIDE 40 MG TAB PO ONE (16:15)
[2018-10-13] MEDS: NS 1,000 ML IV SCH (16:49)
[2018-10-13] MEDS ORDERED: POTASSIUM CHLORIDE 10% LIQ 20 MEQ/15 ML UDC PO ONE (17:45)
[2018-10-13 18:00] VITALS: BP 112/56
--- NOTE | 2018-10-13 18:08 | IPN ---
DATE: 10/13/2018 The patient is seen and examined this morning sitting out of bed to the chair, eating lunch, daughter present at the bedside. Denies any issues overnight, feels better, has been voiding without issues. Calcium levels are almost normalizing. Vital signs: Temperature 97.8, pulse 67, respiratory rate 18, blood pressure 101/53, saturating 98-99% on room air. Intake yesterday was 2.1 liters, urine output yesterday was 1600. Weight on the bed scale today is 57.3 kg. General: The patient is seen sitting out of bed to the chair, awake, alert and oriented, in no acute distress. Legally blind. Tongue is moist. Neck is supple. Jugular veins are not elevated while she is sitting upright. Cardiac: S1, S2, regular rate and rhythm. Lungs are clear to auscultation bilaterally. No crackle, rale or wheeze. Abdomen is soft and nontender. The lower extremities show some nonpitting edema and bulky legs. Neurologic: She is oriented and answers questions appropriately and at baseline mentation. LABORATORY DATA: Sodium 141, potassium 3.5, bicarbonate 29, BUN 30, creatinine 1.0, calcium 10.7. INPATIENT MEDICATIONS: I cut the rate of normal saline down to 75 mL an hour, and she is receiving a dose of Lasix today. She was written for a dose of KCl 40 mEq by mouth times one. Remainder of medications are unchanged from prior. PROBLEMS: 1. 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 Her parathyroid hormone and vitamin D levels are both appropriate. Her calcium supplements were discontinued. Her hydrochlorothiazide was held. She has received vigorous IV fluid administration with concomitant loop diuretics to promote urinary calcium excretion. Her calcium levels are improving significantly. Continue IV fluid but at a lower rate for 24 more hours. She can also receive her home bisphosphonate over the weekend (Fosamax), which will further help with the hypercalcemia. 2. Hypertension. Blood pressures are acceptable. The home triamterene hydrochlorothiazide is presently held due to hypercalcemia. 3. Hypokalemia. Will give another dose of potassium as she continues on loop diuretic.
--- NOTE | 2018-10-13 18:33 | CR ---
DATE OF CONSULTATION: 10/12/2018 REQUESTING PHYSICIAN: Dr. Latricia Garcia. REASON FOR CONSULTATION: Hypercalcemia. HISTORY OF PRESENT ILLNESS: History is obtained from the patient and also her daughter at bedside and chart review. Patient is a fair historian. 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 Her daughter reports that over the past two weeks, the patient was complaining of worsening constipation and difficulty with balance and mobility. She had a few falls and within the past one or two days prior to admission, the family noted that the patient was also mildly confused and had become generally weak and had worsening appetite. They brought her to the emergency room subsequently for further evaluation. In the emergency room (ER), she was noted to have a severe hypercalcemia, with a calcium of 14.3 and metabolic alkalosis and hypokalemia. The patient notes that she takes calcium carbonate 600 mg tablet 3-4 times daily for the past couple of years. She also reports weekly Fosamax for her history of osteoporosis. The patient was treated with vigorous intravenous (IV) fluids and IV Lasix and nephrology evaluation was consulted for help in the management of hypercalcemia. PAST MEDICAL HISTORY: 1. Remote meningioma status post resection several decades ago. No other history of malignancy. 2. Hypertension. 3. Hypothyroidism. 4. Chronic kidney disease (CKD) stage III. 6. Prolapsed bladder. 7. Osteoporosis. 8. Asthma. 9. Legally blind. ALLERGIES: CODEINE, POISON JESSICA EXTRACT. HOME MEDICATIONS: Reviewed: - albuterol - Fosamax - aspirin - calcium carbonate 600 mg by mouth three times a day - fluticasone - furosemide - Advair - levothyroxine - fish oil - phenobarbital - phenytoin - sennosides - triamterene-hydrochlorothiazide FAMILY HISTORY: She reports a family history of autosomal dominant polycystic kidney disease. PAST SURGICAL HISTORY: 1. Hysterectomy. 2. Meningioma resection decades ago. 3. Benign breast cysts that were removed in the remote past. 4. Colonoscopy. SOCIAL HISTORY: No alcohol, tobacco or drug use reported. She lives with her daughter presently. REVIEW OF SYSTEMS: CONSTITUTIONAL: Patient denies fevers or chills. She reports generalized weakness and fatigue. EYES: She is legally blind. ENT: She reports recent dental work. She denies odynophagia. CARDIAC: She denies chest pain or palpitations. RESPIRATORY: She denies shortness of breath or cough. She has a history of sleep apnea. GASTROINTESTINAL: She reports constipation and poor appetite. GENITOURINARY: She denies dysuria or hematuria. Prolapsed bladder. ENDOCRINE: She reports history of hypothyroidism. She denies any diabetes. She denies any prior history of hypercalcemia. MUSCULOSKELETAL: She reports recent falls and history of fractures. She denies any acute myalgias or arthralgias. HEMATOLOGY: She denies half-way anticoagulant use or anemia. NEUROLOGIC: She reports history of resection of brain tumor decades ago and use of antiepileptics. She denies loss of consciousness. SKIN: She denies any new rashes or ulcers. PHYSICAL EXAMINATION: VITAL SIGNS: Temperature 99.1, pulse 59, respiratory rate 18, blood pressure 121/58, saturating 97% on room air. GENERAL: Patient is seen at the bedside, head of bed elevated. Elderly-appearing female in no acute distress. She is awake, alert and conversational, oriented to person, place and situation. She is legally blind. Her tongue is moist. Neck is supple. Jugular veins were not elevated. CARDIAC: S1, S2. Regular rate and rhythm. There is no significant edema in the peripheries. LUNGS: Clear to auscultation bilaterally. No crackles or rales. ABDOMEN: Soft and nontender. There are bowel sounds. LOWER EXTREMITIES: Show no significant edema, clubbing or cyanosis. NEUROLOGIC: She is oriented to person, place, situation, follow commands and is conversational. LABORATORY DATA: Sodium 138, potassium 3.1, bicarbonate 34, BUN 39, creatinine 1.4. TSH 1.3. Hemoglobin 14. Vitamin D 47. PTH 23. Urinalysis negative for protein and blood. IMAGING: Renal ultrasound: Bilateral renal cysts and normal size kidneys. INPATIENT MEDICATIONS: She is receiving: - normal saline at 200 mL an hour. - She received Lasix 4 mg IV times one - potassium chloride 10 mEq IV times three doses - Tylenol as needed - albuterol as needed - aspirin 81 mg by mouth at bedtime - heparin 5000 units subcutaneous every 12 hours - Synthroid 150 mcg by mouth daily - phenobarbital 30 mg by mouth twice a day - phenytoin 50 mg by mouth Tuesday and Tuesday at 09:00 a.m. - Senokot - Timolol PROBLEMS: 1. Hypercalcemia with appropriately suppressed parathyroid hormone level (23, normal 25). Vitamin D level (47) in this patient who reports use of calcium carbonate 600 mg three times a day and is also chronically on a thiazide diuretic. 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 Repeat comprehensive metabolic profile (CMP) is ordered for this evening and I will follow the same. Of note, her urinalysis is negative for protein, which makes paraproteinemia a related hypercalcemia less likely. 2. 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 Patient is ordered for potassium supplementation and we will check magnesium level as well. 3. Hypertension. Hold hydrochlorothiazide at this time as it can also cause hypercalcemia. Her blood pressures are acceptable. 4. Osteoporosis. Patient can receive her usual Fosamax this weekend. Calcium supplements are being held and I have discussed with her daughter regarding decreasing the calcium supplementation as an outpatient. Thank you for involving me in the care of Ms. Easton. I will be happy to follow her along with you.
[2018-10-13] MEDS: SENNA 8.6 MG TAB (SENOKOT) PO SCH (21:39)
[2018-10-13] MEDS: ASPIRIN 81 MG ENTERIC TAB PO SCH (21:39)
[2018-10-13 22:00] VITALS: BP_SYST 121; BP_SYST 134; BP_DIAS 63; BP_DIAS 70
[2018-10-14 02:00] VITALS: BP 107/52
[2018-10-14 06:00] VITALS: BP 122/55
[2018-10-14] MEDS: LEVOTHYROXINE 150MCG TABLET (0.15MG) PO SCH (06:09)
[2018-10-14 06:24] LABS: IONIZED CALCIUM 5.1 MG/DL (4.5-5.3)
[2018-10-14 06:56] LABS: CALCIUM LEVEL 9.8 MG/DL (8.8-10.2); CREATININE FOR GFR 1.07 MG/DL (0.55-1.30); GLOMERULAR FILTRATION RATE 53.4 (>39); MAGNESIUM LEVEL 1.1 MG/DL (1.8-2.4); POTASSIUM SERUM 3.5 MEQ/L (3.5-5.1)
[2018-10-14 06:59] LABS: PHENOBARBITAL LEVEL 32.1 UG/ML (15.0-40.0); PHENYTOIN (DILANTIN) 15.2 UG/ML (10.0-20.0)
[2018-10-14] MEDS: PHENYTOIN ER 100 MG CAP PO SCH (08:50)
[2018-10-14] MEDS: PHENobarbital 30 MG TAB PO SCH (08:51)
[2018-10-14] MEDS: HEPARIN SOD (PORCINE) 5000 UNITS/ML VIAL SC SCH (08:51)
[2018-10-14] MEDS: TIMOLOL MALEATE 0.5% OPHTH SOLN 5 ML OU SCH (08:53)
[2018-10-14 10:00] VITALS: BP 137/72
--- NOTE | 2018-10-14 10:10 | DS.PDOC ---
Discharge Summary General Date of Admission October 12, 2018 at 09:19 Date of Discharge October 14, 2018 Primary Care Physician: MARY BIRD MD Attending Physician: ULI MOSER MD Specialist/Consultants Involve: ELLIE WILSON DO Discharge Summary PROCEDURES PERFORMED DURING STAY: none ADMITTING DIAGNOSES: 1. hypercalcemia 2. hypokalemia DISCHARGE DIAGNOSES: 1. hypercalcemia 2. hypokalemia 3. h/o Meningioma removed and on Dilantin and Fenobarbitol COMPLICATIONS/CHIEF COMPLAINT: Hypercalcemia. HISTORY OF PRESENT ILLNESS: The patient is a 73-year-old white female with several chronic medical conditions, came to the hospital for evaluation of above complains. History is provided by herself as well as her daughter, who is with her in the emergency room (ER). Per the patient, she was doing fine until a few weeks ago. Somehow, she became very weak generally, which was getting worse gradually. Also, her appetite is poor, and she is constipated.Two days ago, she went to see her dentist who pulled two teeth. Yesterday, she was very weak and fell at home, so the family brought her to the hospital for further evaluation. In the ER, her initial workup indicated her calcium level is up to 14. She was given intravenous (IV) hydration in the ER. Meanwhile, medicine was called for admission. HOSPITAL COURSE: After admission, she was treated with IVF and IV lasix; she was consulted with cable strander. her workups showed normal intact PTH and 25-(OH) Vit D level. 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 She was taking Calcium @ 800 mg tid with was on hold since admission and will discontinue on discharge. Now her calcium level is normal and she is in her baseline and will go home today. DISCHARGE MEDICATIONS: Please see below. ALLERGIES: Please see below. PHYSICAL EXAMINATION ON DISCHARGE: VITAL SIGNS: Please see below. GENERAL: AA Ox3 HEENT: atraumatic NECK: no JVD CARDIOVASCULAR EXAMINATION:S1 S2 regular RESPIRATORY EXAMINATION: clear no wheezing ABDOMINAL EXAMINATION: soft BS normal, non tender EXTREMITIES: no edema SKIN: no rash NEUROLOGICAL EXAMINATION: non focal PSYCHIATRIC EXAMINATION: mood normal LABORATORY DATA: Please see below. PROGNOSIS: fair ACTIVITY: as tolerated DIET: regular diet DISPOSITION: home ITEMS TO FOLLOWUP ON ON OUTPATIENT: 1. PCP in 1-2 weeks DISCHARGE CONDITION: stable TIME SPENT ON DISCHARGE: Greater than 35 minutes. Vital Signs/I&Os Vital Signs Date Time Temp Pulse Resp B/P (MAP) Pulse Ox O2 Delivery O2 Flow Rate FiO2 10/14/18 06:00 97.8 64 17 122/55 (77) 99 10/12/18 11:32 Room Air I&O- Last 24 Hours up to 6 AM 10/14/18 06:00 Intake Total 1460 ml Output Total 1175 ml Balance 285 ml Laboratory Data Labs 24H Laboratory Tests 2 10/14/18 06:13: Anion Gap 7L, Glomerular Filtration Rate 53.4, Blood Urea Nitrogen 26H, Creatinine 1.07, Sodium Level 142, Potassium Level 3.5, Chloride Level 108H, Carbon Dioxide Level 27, Calcium Level 9.8, Whole Blood Ionized Calcium 5.1, Magnesium Level 1.1L, Phenytoin (Dilantin) Level 15.2, Phenobarbital Level 32.1 CBC/BMP Laboratory Tests 10/14/18 06:13 Calcium Level 9.8 Microbiology Microbiology 10/12/18 Urine Culture - Final, Complete Discharge Medications Scheduled Alendronate Sodium (Alendronate Sodium) 70 Mg Tab, 70 MG PO QWEEK, (Reported) SUNDAYS Aspirin (Aspirin EC) 81 Mg Tab, 81 MG PO QHS, (Reported) Levothyroxine Sodium (Levothyroxine Sodium) 175 Mcg Tab, 175 MCG PO DAILY, (Reported) [place]-3/Dha/Epa/Fish Oil (Fish Oil 1,360 mg Softgel) 1 Each Capsule, 1 CAP PO DAILY, (Reported) Phenobarbital (Phenobarbital) 16.2 Mg Tab, 32.4 MG PO TID, (Reported) Phenytoin (Phenytoin) 50 Mg Chw, 50 MG PO 2XW, (Reported) MONDAYS, FRIDAYS Phenytoin Sodium Extended (Phenytoin Sodium Extended) 100 Mg Capsule, 100 MG PO TID, (Reported) Sennosides (Senna Laxative) 8.6 Mg Tab, 8.6 MG PO QHS, (Reported) Timolol Maleate (Timolol Maleate) 0.5 % [place], 1 DROP OU BID, (Reported) Triamterene/Hydrochlorothiazid (Triamterene-Hctz 37.5-25 mg Cp) 1 Cap Cap, 1 CAP PO DAILY, (Reported) Scheduled PRN Albuterol Sulfate (Proair Hfa) 108 Mcg/Act Aer, 2 PUFF INH PRN PRN for SHORTNESS OF BREATH, (Reported) Conjugated Estrogens (Premarin) 30 Gm Cream.appl, 0.5 GRAM PV 2XW PRN for DISCOMFORT, (Reported) Fluticasone Propionate (Flonase Allergy Relief) 50 Mcg/Act Spr, 2 SPRAYS NARES DAILY PRN for CONGESTION, (Reported) Ipratropium/Albuterol Sulfate (Iprat-Albut 0.5-3(2.5) mg/3 ml) 3 Ml Ampul.neb, 1 VIAL NEB Q6H PRN for SHORTNESS OF BREATH, (Reported) Allergies Coded Allergies: codeine (Verified Allergy, Unknown, RASH, 10/12/18) poison ruchi extract (Verified Allergy, Unknown, RASH, 10/12/18) ULI MOSER MD October 14, 2018 10:10
[2018-10-14] MEDS: MAG SULF 1GM/100ML (MAG RUN) 1 GM in APPROPRIATE DILUENT 1 EA IV SCH ×2 (11:03→12:07)
--- NOTE | 2018-10-14 16:36 | IPN ---
DATE: 10/14/2018 SUBJECTIVE: The patient was seen and examined at the bedside today morning. She was actually sitting up in the sofa. She is awake and alert. Her calcium level has improved to within normal range; however, the patient had low magnesium levels. I have ordered intravenous (IV) magnesium, and she was receiving the magnesium today morning. Otherwise, the patient reports that she is getting ready to be discharged today. OBJECTIVE: Vital signs: Temperature is 97.2 degrees Fahrenheit, blood pressure 137/72, pulse is 74, respiratory rate of 24, saturating 100% on room air. Intake and output: Urine output recorded is 1.1 liters yesterday, 200 mL so far today since overnight. Weight in the bed scale is not available. PHYSICAL EXAMINATION: GENERAL: The patient is awake, alert, oriented times three, sitting up in the sofa. HEAD AND NECK: Patient is legally blind. Mucous membranes are moist. Neck is supple. There is no jugular venous distention (JVD). CARDIOVASCULAR: S1, S2, regular rate. No edema of the bilateral lower extremities. RESPIRATORY: Chest is clear to auscultation bilaterally. Bilateral equal air entry. No rales or rhonchi. ABDOMEN: Soft. Positive bowel sounds. Nontender. No organomegaly. MUSCULOSKELETAL: No clubbing or cyanosis. Pulses are 2+. CENTRAL NERVOUS SYSTEM (INSPECTOR GOVERNMENT PROPERTY): The patient has bilateral legal blindness; otherwise, she moves extremities. LABORATORY REVIEW: CBC showed a WBC of 4.8, hemoglobin 11.1, and that was from yesterday. BMP today morning showed sodium 142, potassium 3.5, chloride 108, bicarbonate 27, BUN 26, creatinine is 1.07, calcium is 9.8, ionized calcium is 5.1, magnesium was 1.1. CURRENT INPATIENT MEDICATIONS: The patient's medications were all reviewed by me. Her intravenous (IV) fluids was stopped. I have ordered magnesium sulfate 1 gram IV times two doses. She was given a dose of Lasix and potassium yesterday. ASSESSMENT AND PLAN: 1. Hypercalcemia. Most likely secondary to use of calcium supplements. She was also taking thiazide diuretic at home. The patient got IV fluid hydration. Calcium level has improved within the normal range. The patient was already receiving Fosamax at home, so zoledronic acid was not given. The patient was advised to avoid further use of calcium and vitamin D until she is evaluated in the office 2. Hypokalemia. The patient's potassium level is improved within the normal range. 3. Hypomagnesemia. The patient will receive magnesium sulfate 1 gram IV times two doses. DISPOSITION: It is okay to discharge the patient of administration of IV magnesium today. She needs to followup with nephrology as an outpatient within 2 weeks after discharge from the hospital.
== END 2018-10-14 13:34 | disposition home or self-care (01) | DRG 641 ==
LOC: M ED 07:02 → M ED INP 09:19 → M PCU 12:02 → M MSPAV 10-13 13:03
PROVIDERS: ADMIT Hospitalist; ATTEND Hospitalist
DX: E83.52 Hypercalcemia (principal); E20.9 Hypoparathyroidism, unspecified; E87.6 Hypokalemia; Z79.899 Other long term (current) drug therapy; Z79.82 Long term (current) use of aspirin; Z88.5 Allergy status to narcotic agent; E03.9 Hypothyroidism, unspecified; N18.3 Chronic kidney disease, stage 3 (moderate); I12.9 Hypertensive chronic kidney disease with stage 1 through stage 4 chronic kidney disease, or unspecified chronic kidney disease; G47.33 Obstructive sleep apnea (adult) (pediatric); H54.8 Legal blindness, as defined in USA; J45.909 Unspecified asthma, uncomplicated; M81.0 Age-related osteoporosis without current pathological fracture; N28.1 Cyst of kidney, acquired

== ENCOUNTER → 2018-10-30 | Outpatient (REF) | payer MEDICARE ==
[~2018-10-30] MED LIST changes: +CALC600T5 PO; +ESTR62CR PV; +FISH1CAP23 PO; +IPRA0.00 NEB; +PENI500T PO; +PHEN100C PO
[2018-10-30 20:42] LABS: BLOOD UREA NITROGEN 20 MG/DL (7-18); CALCIUM LEVEL 9.1 MG/DL (8.8-10.2); CARBON DIOXIDE LEVEL 31 MEQ/L (21-32); CHLORIDE LEVEL 101 MEQ/L (98-107); CREATININE FOR GFR 0.89 MG/DL (0.55-1.30); GLOMERULAR FILTRATION RATE > 60.0 (>39); GLUCOSE, FASTING 96 MG/DL (70-100); POTASSIUM SERUM 3.6 MEQ/L (3.5-5.1); SODIUM LEVEL 139 MEQ/L (136-145)
== END ==
LOC: M SFHCLERA 17:18
PROVIDERS: ATTEND Family Medicine
DX: Z01.818 Encounter for other preprocedural examination (principal); E03.9 Hypothyroidism, unspecified; H61.21 Impacted cerumen, right ear
CPT/HCPCS: 69210; 80048; 84443; G0463

== ENCOUNTER 2018-11-02 09:42 | Day surgery (SDC) | payer MEDICARE ==
[~2018-11-02] VITALS: Ht 157.5 cm; Wt 57.2 kg
[~2018-11-02 09:42] MED LIST changes: +ACETAMINOPHEN 325 MG TAB PO PRN; +BALANCED SALT IRRIGATION SOLUTION 500ML BAG (FOR OR EYE MACHINE) As Ordered ONE; +CEFUROXIME 1MG/0.1ML INTRACAMERAL INJ As Ordered ONE; +DUOVISC (0.50ML VISCOAT/0.55ML PROVISC) OPHTH KIT As Ordered ONE; +LIDOCAINE 0.75%/EPINEPHRINE 0.025% IN BSS 1ML SYR INTRACAMERAL (OR ONLY) As Ordered ONE; +OFLOXACIN 0.3 % (OCUFLOX) OPTH SOL 5ML OS ONE; +PHENYLEPHRINE 2.5% OPHTH SOL 2ML OS ONE; +POVIDONE-IODINE 5% OPHTH PREP SOL 30ML As Ordered ONE; +PROPARACAINE 0.5% OPHTH SOL 15ML OS ONE; +PROPARACAINE 0.5% OPHTH SOL 15ML OS PRN; +TROPICAMIDE 1% OPHTH SOLN 2ML OS ONE
[2018-11-02] MEDS ORDERED: fentaNYL 100 MCG/2 ML INJECTION (J3010) As Ordered ONE (09:43)
[2018-11-02] MEDS ORDERED: MIDAZOLAM INJ 2 MG/2 ML VIAL (J2250) As Ordered ONE (09:43)
[2018-11-02] MEDS ORDERED: TRYPAN BLUE 0.06 % 2.25 ML OPHTH SYR (VISIONBLUE) As Ordered ONE (11:25)
[2018-11-02 12:10] VITALS: BP 141/63
[2018-11-02] MEDS ORDERED: TRIMETHOBENZAMIDE 300 MG CAP PO PRN (12:15)
--- NOTE | 2018-11-03 07:58 | RO ---
DATE OF PROCEDURE: 11/02/2018 PREOPERATIVE DIAGNOSIS: 1. Visually significant nuclear sclerotic cataract left eye. POSTOPERATIVE DIAGNOSIS: 1. Visually significant nuclear sclerotic cataract left eye. PROCEDURE: 1. Cataract extraction with use of phacoemulsification and placement of intraocular lens, AU00T0 22.5 D, left eye. SURGEON: Delroy Hernandez DO WINDOWS DESKTOP ENGINEER: None. ANESTHESIA: Local with monitored anesthesia care (MAC). COMPLICATIONS: None. POSTOPERATIVE CONDITION: Stable. INDICATIONS FOR SURGERY: 1. Blurred vision affecting patients activities of daily living. DESCRIPTION OF PROCEDURE: The patient was seen in the preoperative area and properly identified. The correct operative eye was identified and marked. The patient received topical anesthetic, antibiotics, and topical dilating drops. The patient was then transferred to the operating room. The correct side was re-identified, and a time-out was performed. The eye was prepped and draped in a sterile fashion. The eyelids were isolated with Tegaderm tape, and the lids were held open with an adjustable speculum. A 1.0 mm paracentesis incision was made. Intraocular preservative-free Shugarcaine was then injected into the anterior chamber. Viscoelastic was then injected into the anterior chamber through the paracentesis. Using a 2.4 mm sharp-tipped keratome, the anterior chamber was entered via a temporal clear cornea incision. A continuous curvilinear capsulorrhexis was created with Utrata forceps. Hydrodissection was performed with balanced salt solution (BSS) on a blunt cannula until the nucleus was able to rotate freely. The crystalline lens was phacoemulsified and aspirated. Irrigation/aspiration was used to remove the cortical material. Cohesive viscoelastic was placed into the capsular bag to deepen it. The implant was placed into the capsular bag and allowed to unfold. Placement was confirmed by visualizing the anterior capsulorrhexis. Irrigation/aspiration was used to remove the viscoelastic. The clear corneal incision was hydrated with BSS on a blunt cannula. The lens was well positioned. The incisions were then tested for leaks and found to be negative. The eye was then palpated for appropriate pressure and adjusted accordingly with BSS. The eyelid speculum was then carefully removed. A shield was placed over the eye. The patient tolerated the procedure well and was discharged to the recovery unit in a stable condition.
== END 2018-11-02 12:35 | disposition home or self-care (01) ==
LOC: M SDC 09:42
PROVIDERS: ATTEND Ophthalmology
DX: H25.12 Age-related nuclear cataract, left eye (principal); I10 Essential (primary) hypertension; E03.9 Hypothyroidism, unspecified; G47.30 Sleep apnea, unspecified; Z79.899 Other long term (current) drug therapy; Z79.82 Long term (current) use of aspirin
CPT/HCPCS: 66984; J2250; J3010; V2632

== ENCOUNTER 2018-11-16 06:35 | Day surgery (SDC) | payer MEDICARE ==
[~2018-11-16] VITALS: Ht 157.5 cm; Wt 58.5 kg
[~2018-11-16 06:35] MED LIST changes: -ACETAMINOPHEN 325 MG TAB PO PRN; -BALANCED SALT IRRIGATION SOLUTION 500ML BAG (FOR OR EYE MACHINE) As Ordered ONE; -CEFUROXIME 1MG/0.1ML INTRACAMERAL INJ As Ordered ONE; -DUOVISC (0.50ML VISCOAT/0.55ML PROVISC) OPHTH KIT As Ordered ONE; -LIDOCAINE 0.75%/EPINEPHRINE 0.025% IN BSS 1ML SYR INTRACAMERAL (OR ONLY) As Ordered ONE; -OFLOXACIN 0.3 % (OCUFLOX) OPTH SOL 5ML OS ONE; -PHENYLEPHRINE 2.5% OPHTH SOL 2ML OS ONE; -POVIDONE-IODINE 5% OPHTH PREP SOL 30ML As Ordered ONE; -PROPARACAINE 0.5% OPHTH SOL 15ML OS ONE; -PROPARACAINE 0.5% OPHTH SOL 15ML OS PRN; -TROPICAMIDE 1% OPHTH SOLN 2ML OS ONE
[2018-11-16] MEDS ORDERED: BALANCED SALT IRRIGATION SOLUTION 500ML BAG (FOR OR EYE MACHINE) As Ordered ONE (06:49)
[2018-11-16] MEDS ORDERED: CEFUROXIME 1MG/0.1ML INTRACAMERAL INJ As Ordered ONE (06:49)
[2018-11-16] MEDS ORDERED: POVIDONE-IODINE 5% OPHTH PREP SOL 30ML As Ordered ONE (06:49)
[2018-11-16] MEDS ORDERED: LIDOCAINE 0.75%/EPINEPHRINE 0.025% IN BSS 1ML SYR INTRACAMERAL (OR ONLY) As Ordered ONE (06:49)
[2018-11-16] MEDS ORDERED: DUOVISC (0.50ML VISCOAT/0.55ML PROVISC) OPHTH KIT As Ordered ONE (06:49)
[2018-11-16] MEDS ORDERED: PHENYLEPHRINE 2.5% OPHTH SOL 2ML OD ONE (07:00)
[2018-11-16] MEDS ORDERED: TROPICAMIDE 1% OPHTH SOLN 2ML OD ONE (07:00)
[2018-11-16] MEDS ORDERED: OFLOXACIN 0.3 % (OCUFLOX) OPTH SOL 5ML OD ONE (07:00)
[2018-11-16] MEDS ORDERED: PROPARACAINE 0.5% OPHTH SOL 15ML OD ONE (07:00)
[2018-11-16] MEDS ORDERED: MIDAZOLAM INJ 2 MG/2 ML VIAL (J2250) As Ordered ONE (08:25)
[2018-11-16] MEDS ORDERED: fentaNYL 100 MCG/2 ML INJECTION (J3010) As Ordered ONE (08:25)
[2018-11-16] MEDS ORDERED: TRYPAN BLUE 0.06 % 2.25 ML OPHTH SYR (VISIONBLUE) As Ordered ONE (08:48)
[2018-11-16 09:25] VITALS: BP 134/64
--- NOTE | 2018-11-17 08:30 | RO ---
DATE OF PROCEDURE: 11/16/2018 PREOPERATIVE DIAGNOSES: 1. Visually significant nuclear sclerotic cataract right eye. 2. Astigmatism right eye. POSTOPERATIVE DIAGNOSES: 1. Visually significant nuclear sclerotic cataract right eye. 2. Astigmatism right eye. PROCEDURE: 1. Cataract extraction with use of phacoemulsification, and placement of intraocular lens, AU00T0, 22.0 D , right eye, with use of femtosecond laser. 2. Placement of limbal relaxing incisions right eye. SURGEON: Delroy Hernandez DO SLIDE MACHINE TENDER: None. ANESTHESIA: Local with monitored anesthesia care (MAC). COMPLICATIONS: None POSTOPERATIVE CONDITION: Stable INDICATIONS FOR SURGERY: 1. Blurred vision affecting patients activities of daily living. DESCRIPTION OF PROCEDURE: The patient was seen in the preoperative area and properly identified. The correct operative eye was identified and marked. The patient received topical anesthetic, antibiotics, and topical dilating drops. The patient was then transferred to the laser room. The patient was positioned under the laser. A timeout was performed. The laser was applied. A 4.8 mm capsulotomy, fragmentation, and limbal relaxing incisions were created. The patient tolerated the procedure well and was transferred to the operating room. The correct side was re-identified and a timeout was performed. The eye was prepped and draped in a sterile fashion. The eyelids were isolated with Tegaderm tape and the lids were held open with an adjustable speculum. A 1.0 mm paracentesis incision was made. Intraocular preservative free Shugarcaine was then injected into the anterior chamber. Viscoelastic was then injected into the anterior chamber through the paracentesis. Using a 2.4 mm sharp-tipped keratome, the anterior chamber was entered via a temporal clear cornea incision. Utrata forceps were used to removed the free floating capsulotomy. Hydrodissection was performed with BSS on a blunt cannula until the nucleus was able to rotate freely. The crystalline lens was phacoemulsified and aspirated. Irrigation/aspiration was used to remove the cortical material Cohesive viscoelastic was placed into the capsular bag to deepen it. The implant was placed into the capsular bag and allowed to unfold. Placement was confirmed by visualizing the anterior capsulorrhexis. Irrigation/aspiration was used to remove the viscoelastic. The clear corneal incision was hydrated with BSS on a blunt cannula. The lens was well positioned. The incisions were then tested for leaks and found to be negative. The eye was then palpated for appropriate pressure and adjusted accordingly with BSS. The eyelid speculum was then carefully removed. A shield was placed over the eye. The patient tolerated the procedure well and was discharge to the recovery unit in a stable condition.
== END 2018-11-16 09:34 | disposition home or self-care (01) ==
LOC: M SDC 06:35
PROVIDERS: ATTEND Ophthalmology
DX: H25.11 Age-related nuclear cataract, right eye (principal); H54.8 Legal blindness, as defined in USA; H52.201 Unspecified astigmatism, right eye; I10 Essential (primary) hypertension; E03.9 Hypothyroidism, unspecified; G47.30 Sleep apnea, unspecified; Z79.82 Long term (current) use of aspirin; Z79.899 Other long term (current) drug therapy
CPT/HCPCS: 65772; 66984; J2250; J3010; V2632

== ENCOUNTER → 2018-12-04 | Outpatient (REF) | payer MEDICARE ==
[2018-12-04 12:32] LABS: PHENOBARBITAL LEVEL 30.7 UG/ML (15.0-40.0); PHENYTOIN (DILANTIN) 17.8 UG/ML (10.0-20.0)
== END ==
LOC: M LABDRAW1 11:08
PROVIDERS: ATTEND Physician Assistant Medical
DX: R56.9 Unspecified convulsions (principal)